=== PATIENT | female | born 1950 | race Caucasian/White ===

== ENCOUNTER 2017-11-29 11:06 | Outpatient (CLI) | payer MEDICARE, BC | END 2017-11-29 11:07 | disposition home or self-care (01) | LOC: BICMAMMO 11:06 | PROVIDERS: ATTEND Obstetrics & Gynecology | DX: Z12.31 Encounter for screening mammogram for malignant neoplasm of breast (principal); Z80.3 Family history of malignant neoplasm of breast; R92.1 Mammographic calcification found on diagnostic imaging of breast | CPT/HCPCS: 77063; 77067 ==

== ENCOUNTER 2018-05-17 13:50 | Outpatient (CLI) | payer MEDICARE, BC ==
--- NOTE | 2018-05-17 14:33 | BD ---
DEXA BONE MINEARL DENSITY STUDY: Date: 05/17/18 HISTORY: Osteoporosis screening. Postmenopausal female. COMPARISON: DEXA study from 2013. FINDINGS: Lumbar Spine: BMD (g/cm2) L1 0.730 T-Score: -2.4 Z-Score: -0.6 L2 0.748 T-Score: -2.4 Z-Score: -0.6 L3 0.727 T-Score: -3.2 Z-Score: -1.2 L4 0.641 T-Score: -3.8 Z-Score: -1.7 L1-L4 0.709 T-Score: -3.1 Z-Score: -1.1 WHO Classification: Osteoporosis. Femoral Neck: 0.857 T-Score: -2.6 Z-Score: -0.9 Total Femur: 0.699 T-Score: 02.0 Z-Score: -0.6 WHO Classification: Osteoporosis. 10 YEAR FRACTURE RISK: FRAX is not reported as the T-Scores are at or below -2.5. IMPRESSION: Osteoporosis with elevated fracture risk. POS: TPC
== END 2018-05-17 13:51 | disposition home or self-care (01) ==
LOC: BICMAMMO 13:50
PROVIDERS: ATTEND Obstetrics & Gynecology
DX: Z13.820 Encounter for screening for osteoporosis (principal); M81.0 Age-related osteoporosis without current pathological fracture
CPT/HCPCS: 77080

== ENCOUNTER 2018-07-21 14:07 | Outpatient (CLI) | payer MEDICARE, BC ==
--- NOTE | 2018-07-21 14:51 | RAD ---
RIGHT HIP TWO VIEWS: History: Right hip pain. FINDINGS/IMPRESSION: No fracture, dislocation, or bony destruction is seen. Minimal degenerative changes are noted. POS: OFF
== END 2018-07-21 14:08 | disposition home or self-care (01) ==
LOC: SCSRAD 14:07
PROVIDERS: ATTEND Nurse Practitioner Family
DX: M25.551 Pain in right hip (principal); M16.11 Unilateral primary osteoarthritis, right hip

== ENCOUNTER 2018-12-01 12:46 | Outpatient (CLI) | payer MEDICARE, BC ==
--- NOTE | 2018-12-01 13:49 | MMO ---
Bilateral MAMMO Bilat Screen [facility]. CLINICAL HISTORY: Patient is 68 years old and is seen for screening. The patient has the following family history of breast cancer: paternal aunt. The patient has no personal history of cancer. The patient has a history of Cyst Aspiration - 2001 or 2002. VIEWS: The views performed were: bilateral craniocaudal with tomosynthesis and bilateral mediolateral oblique with tomosynthesis. FILMS COMPARED: The present examination has been compared to prior imaging studies performed at [facility] on 11/02/2014, 11/25/2015, 11/26/2016 and 11/29/2017. MAMMOGRAM FINDINGS: There are scattered fibroglandular densities. There are benign appearing calcifications seen in both breasts. There are no suspicious masses, suspicious calcifications, or new areas of architectural distortion. IMPRESSION: THERE IS NO MAMMOGRAPHIC EVIDENCE OF MALIGNANCY. A ROUTINE FOLLOW-UP MAMMOGRAM IN 1 YEAR IS RECOMMENDED. THE RESULTS OF THIS EXAM WERE SENT TO THE PATIENT. ACR BI-RADS Category 2 - Benign finding MAMMOGRAPHY NOTE: 1. A negative mammogram report should not delay a biopsy if a dominant of clinically suspicious mass is present. 2. Approximately 10% to 15% of breast cancers are not detected by mammography. 3. Adenosis and dense breasts may obscure an underlying neoplasm. Reported by: MELANIE VANG MD Electonically Signed: [id number]
== END 2018-12-01 12:47 | disposition home or self-care (01) ==
LOC: BICMAMMO 12:46
PROVIDERS: ATTEND Obstetrics & Gynecology
DX: Z12.31 Encounter for screening mammogram for malignant neoplasm of breast (principal); Z80.3 Family history of malignant neoplasm of breast
CPT/HCPCS: 77063; 77067

== ENCOUNTER 2019-12-04 13:01 | Outpatient (CLI) | payer MEDICARE, BC ==
--- NOTE | 2019-12-04 14:13 | MMO ---
Bilateral MAMMO Bilat Screen [facility]. CLINICAL HISTORY: Patient is 69 years old and is seen for screening. The patient has the following family history of breast cancer: paternal aunt. The patient has no personal history of cancer. The patient has a history of Cyst Aspiration - 2001 or 2002. VIEWS: The views performed were: bilateral craniocaudal with tomosynthesis and bilateral mediolateral oblique with tomosynthesis. FILMS COMPARED: The present examination has been compared to prior imaging studies performed at [facility] on 11/25/2015, 11/26/2016, 11/29/2017 and 12/01/2018. This study has been interpreted with the assistance of computer-aided detection. MAMMOGRAM FINDINGS: There are scattered fibroglandular densities. Benign calcifications are noted bilaterally. There are no suspicious masses, suspicious calcifications, or new areas of architectural distortion. IMPRESSION: THERE IS NO MAMMOGRAPHIC EVIDENCE OF MALIGNANCY. A ROUTINE FOLLOW-UP MAMMOGRAM IN 1 YEAR IS RECOMMENDED. THE RESULTS OF THIS EXAM WERE SENT TO THE PATIENT. ACR BI-RADS Category 2 - Benign finding MAMMOGRAPHY NOTE: 1. A negative mammogram report should not delay a biopsy if a dominant of clinically suspicious mass is present. 2. Approximately 10% to 15% of breast cancers are not detected by mammography. 3. Adenosis and dense breasts may obscure an underlying neoplasm. Reported by: JEWEL TODD MD Electonically Signed: [id number]
== END 2019-12-04 13:02 | disposition home or self-care (01) ==
LOC: BICMAMMO 13:01
PROVIDERS: ATTEND Family Medicine
DX: Z12.31 Encounter for screening mammogram for malignant neoplasm of breast (principal); Z80.3 Family history of malignant neoplasm of breast
CPT/HCPCS: 77063; 77067

== ENCOUNTER 2021-12-12 12:41 | Outpatient (CLI) | payer MEDICARE, BC | END 2021-12-12 12:42 | disposition home or self-care (01) | LOC: BICMAMMO 12:41 | PROVIDERS: ATTEND Family Medicine | DX: Z12.31 Encounter for screening mammogram for malignant neoplasm of breast (principal); Z80.3 Family history of malignant neoplasm of breast; Z86.000 Personal history of in-situ neoplasm of breast | CPT/HCPCS: 77063; 77067 ==

== ENCOUNTER 2022-01-29 06:50 | Day surgery (SDC) | payer MEDICARE, BC ==
[2022-01-28 10:08] VITALS: BMI 25.7
[2022-01-29] MEDS ORDERED: Acetaminophen 500 MG TAB ONE (11:38)
[2022-01-29] MEDS ORDERED: Famotidine/PF 20 mg/2ml Vial ONE (12:58)
[2022-01-29] MEDS ORDERED: fentaNYL Citrate/PF 100 MCG/2 ML SYRINGE ONE (12:58)
[2022-01-29] MEDS ORDERED: Isosulfan Blue 50 MG/5 ML VIAL ONE (12:59)
[2022-01-29] MEDS ORDERED: Bupivacaine 0.25% 10 ML VIAL ONE (12:59)
[2022-01-29] MEDS ORDERED: EPINEPHrine 1 MG/ML AMP ONE (12:59)
[2022-01-29] MEDS ORDERED: Bupivacaine 0.25% HCL 30 ML VIAL ONE (13:00)
[2022-01-29] MEDS ORDERED: CEFAZOLIN 2 GM VIAL ONE (13:06)
[2022-01-29] MEDS ORDERED: Sodium Chloride 0.9% 100 ML ONE (13:06)
[2022-01-29] MEDS ORDERED: Ondansetron PF 4 MG/2 ML Vial ONE (13:19)
[2022-01-29] MEDS ORDERED: Dexamethasone 20 MG/5 ML VIAL ONE (13:19)
[2022-01-29] MEDS ORDERED: Lidocaine 1% MPF 2 ML VIAL ONE (13:19)
[2022-01-29] MEDS ORDERED: Rocuronium Bromide 10 MG/ML (10ML VIAL) ONE (13:19)
[2022-01-29] MEDS ORDERED: Glycopyrrolate 0.2 MG/ML 5 ML SYRINGE ONE (13:19)
[2022-01-29] MEDS ORDERED: NEOSTIGMINE 3 MG/3 ML SYR 3 MG/3 ML SYRINGE ONE (13:19)
[2022-01-29] MEDS ORDERED: PROPOFOL 200 MG/20 ML VIAL ONE (13:19)
== END 2022-01-29 18:19 | disposition home or self-care (01) ==
LOC: SDC 06:50
PROVIDERS: ATTEND Surgery
PROC: 0HBT0ZZ Excision of Right Breast, Open Approach (ICD-10-PCS; principal; 2022-01-29)
PROC: 07B50ZX Excision of Right Axillary Lymphatic, Open Approach, Diagnostic (ICD-10-PCS; 2022-01-29)
DX: C50.411 Malignant neoplasm of upper-outer quadrant of right female breast (principal); E03.9 Hypothyroidism, unspecified; M81.0 Age-related osteoporosis without current pathological fracture; Z17.0 Estrogen receptor positive status [ER+]; Z87.891 Personal history of nicotine dependence; Z79.890 Hormone replacement therapy; Z79.899 Other long term (current) drug therapy; Z88.2 Allergy status to sulfonamides
CPT/HCPCS: 19281; 19301; 38525; 38900; 76098; 78195; A9541; C1776; Q9968; 88305; 88307; 88342; A4648; J0171; J0690; J1100; J2405; J2704; J3490; S0020; S0028

== ENCOUNTER 2022-04-17 13:09 | Outpatient (CLI) | payer MEDICARE, BC | END 2022-04-17 13:10 | disposition home or self-care (01) | LOC: BICMAMMO 13:09 | PROVIDERS: ATTEND Internal Medicine Hematology & Oncology | DX: Z13.820 Encounter for screening for osteoporosis (principal); Z78.0 Asymptomatic menopausal state; E07.9 Disorder of thyroid, unspecified; M81.0 Age-related osteoporosis without current pathological fracture | CPT/HCPCS: 77080 ==

== ENCOUNTER 2022-12-16 13:18 | Outpatient (CLI) | payer MEDICARE, BC | END 2022-12-16 13:19 | disposition home or self-care (01) | LOC: BICMAMMO 13:18 | PROVIDERS: ATTEND Radiology Radiation Oncology | DX: C50.411 Malignant neoplasm of upper-outer quadrant of right female breast (principal) | CPT/HCPCS: 77066; G0279 ==